=== PATIENT | female | born 1975 | race Caucasian/White ===

== ENCOUNTER 2016-10-27 19:45 | Emergency (ER) | payer MEDICARE ==
--- NOTE | 2016-10-27 20:33 | ER PHYSICIAN DOCUMENTATION ---
Physician Documentation [facility] Name:Leigha Smith Age:41 yrs Sex:Female :1975 Arrival Date:10/27/2016 Time:19:45 Bed3 Private MD:Physician, No ED Fabio Morgan Disposition: 10/27/16 20:27 Discharged to Home/Self Care. Impression: Bladder Infection (UTI). - Condition is Good. - Discharge Instructions: BLADDER INFECTION, Female (Adult). - Prescriptions for Cipro 500 mg Oral - take 1 tablet by ORAL route every 12 hours for 5 days; 10 tablet. - Medical Reconciliation form form. - Follow up: Private Physician; When: As needed; Reason: Continuance of care. - Problem is new. - Symptoms have improved. HPI: 10/27 21:22 This 41 yrs old Female presents to ER via Private Vehicle with complaints of jm Pain With Urination. 21:22 The patient presents with urinary symptoms, dysuria, frequency, urgency. Onset: The jm symptoms/episode began/occurred 1 week(s) ago. The patient has experienced similar episodes in the past, and the symptoms today are exactly the same, to when the patient was apparently diagnosed with UTI. Historical: - Allergies: No known drug Allergies; - Home Meds: 1. None - PMHx: None; - PSHx: ; - Tetanus: < 10 years. - Ebola Screening: : Patient negative for fever greater than or equal to 101.5 degrees Fahrenheit, and additional compatible Ebola Virus Disease symptoms. - Immunization history: Flu Vaccine None. - Social history: Smoking status: Patient states was never smoker of tobacco. ROS: 21:22 Positive for urinary symptoms. jm 21:22 Constitutional: Negative for fatigue, fever. 21:22 Abdomen/GI: Negative for abdominal pain. 21:22 Back: Negative for pain at rest, pain with movement. Exam: 21:22 Constitutional: The patient appears alert, awake, comfortable. jm 21:22 Abdomen/GI: Bowel sounds: normal, Palpation: abdomen is soft and non-tender. 21:22 : CVA tenderness, is absent, Bladder: is normal. Vital Signs: 19:52 BP 118 / 82; Pulse 82; Resp 16; Temp 98.8(O); Pulse Ox 94% on R/A; Weight 53.52 kg; rh Height 5 ft. 3 in. (160.02 cm); Pain 4/10; 19:52 Body Mass Index 20.90 (53.52 kg, 160.02 cm) rh MDM: 20:10 Patient medically screened. 21:25 Differential diagnosis: urinary tract infection. Data reviewed: vital signs, nurses jm notes, lab test result(s), urinalysis, bacteruria, hematuria, pyuria, and as a result, I will discharge patient. Counseling: I had a detailed discussion with the patient and/or guardian regarding: the historical points, exam findings, and any diagnostic results supporting the discharge/admit diagnosis, lab results, the need for outpatient follow up, with the patient's primary care provider. 10/27 20:30 Order name: UA W/O MICRO - SHAWANDA, CUL IF IND EDMS 10/27 19:53 Order name: Urine Dip; Complete Time: 19:53 rh Dispensed Medications: 20:24 CANCELLED (Physician Discretion): Azo-Standard 100 mg PO once 20:32 Drug: Cipro 500 mg; Route: PO; 20:32 Follow up: Response: No adverse reaction 20:32 Drug: Pyridium - Phenazopyridine 200mg 200 mg; Route: PO; 20:32 Follow up: Response: No adverse reaction Point of Care Testing: Urine Dip: 19:53 pH: 7.0; ; Specific [place]: 1.025; Ketones: Negative; Glucose: Negative; Protein: em1 Negative; Leukocytes: Positive; Nitrite: Negative ; Blood: Non Hemolyzed Trace; Bilirubin: Negative ; Urobilinogen: Normal Signatures: Fabio Brush MD MD jm Hofsess, Rachel
--- NOTE | 2016-10-27 20:33 | ER NURSING DOCUMENTATION ---
Nurse's Notes [facility] Name:Leigha Smith Age:41 yrs Sex:Female :1975 Arrival Date:10/27/2016 Time:19:45 Bed3 Private MD:Bella Rm Diagnosis:Bladder Infection (UTI) Presentation: 10/27 19:50 Presenting complaint: Patient states: Burning, frequency and four smelling urine for a rh week or more. Transition of care: Home. 19:50 Acuity: WILMER 4 19:50 Method Of Arrival: Private Vehicle Triage Assessment: 19:51 General: Appears in no apparent distress, Behavior is cooperative. General: Denies rh fever, chills. Pain: Denies pain. EENT: Oral mucosa is moist. Neuro: Level of Consciousness is awake, alert, obeys commands. : Urine is clear, Reports burning with urination pain urgency urinary frequency. Derm: Skin is intact, is healthy with good turgor, Skin is pink, warm & dry. Historical: - Allergies: No known drug Allergies; - Home Meds: 1. None - PMHx: None; - PSHx: ; - Tetanus: < 10 years. - Ebola Screening: : Patient negative for fever greater than or equal to 101.5 degrees Fahrenheit, and additional compatible Ebola Virus Disease symptoms. - Immunization history: Flu Vaccine None. - Social history: Smoking status: Patient states was never smoker of tobacco. Screenin:52 Infectious Disease Risk None. Abuse screen: Denies threats or abuse. Denies injuries rh from another. Nutritional screening: No deficits noted. Assessment: 19:52 See Triage Assessment done by same RN. rh Vital Signs: 19:52 BP 118 / 82; Pulse 82; Resp 16; Temp 98.8(O); Pulse Ox 94% on R/A; Weight 53.52 kg; rh Height 5 ft. 3 in. (160.02 cm); Pain 4/10; 19:52 Body Mass Index 20.90 (53.52 kg, 160.02 cm) rh ED Course: 19:46 Patient arrived in ED. em2 19:46 Physician, No is Private Physician. em2 19:50 Mikala Singleton is Primary Nurse. 19:51 Triage completed. 19:52 Valuables Remains with patient Patient has correct armband on for positive rh identification. Bed in low position. Call light in reach. 19:53 Urine collected. Clean catch specimen. em1 20:10 Fabio Brush MD is Attending Physician. ulises Administered Medications: 20:24 CANCELLED (Physician Discretion): Azo-Standard 100 mg PO once 20:32 Drug: Cipro 500 mg; Route: PO; 20:32 Follow up: Response: No adverse reaction 20:32 Drug: Pyridium - Phenazopyridine 200mg 200 mg; Route: PO; 20:32 Follow up: Response: No adverse reaction Point of Care Testing: Urine Dip: 19:53 pH: 7.0; ; Specific [place]: 1.025; Ketones: Negative; Glucose: Negative; Protein: em1 Negative; Leukocytes: Positive; Nitrite: Negative ; Blood: Non Hemolyzed Trace; Bilirubin: Negative ; Urobilinogen: Normal Outcome: 20:27 Discharge ordered by . 20:32 Discharged to home ambulatory. 20:32 Condition: stable 20:32 Discharge Assessment: Patient awake, alert and oriented x 3. No cognitive and/or functional deficits noted. Patient verbalized understanding of disposition instructions. 20:32 Discharge instructions given to patient, Instructed on discharge instructions, follow up and referral plans. Demonstrated understanding of instructions, medications, Prescriptions given X 1. 20:33 Patient left the ED. 10/28 11:07 Discharge F/U Call: Spoke with: patient. Overall Care on a scale of 1-10 with 10 ma being the best care, you rate our care as: Other comments: States everything was fantastic and is feeling better Signatures: Janee Rosenberg, RN Fabio Khan ma, MD MD jm MeinenGreet-tech, Olimpia-tech em1 Meinking-reg, Olimpia-reg em2 Mani, Mikala
[2016-10-27] MEDS ORDERED: PHENAZOPYRIDINE 100 MG TABLET PO ONE (20:35)
[2016-10-27] MEDS ORDERED: CIPROFLOXACIN HCL 500 MG TABLET PO ONE (20:35)
[2016-10-27 20:37] LABS: URINE MUCUS NONE SEEN (Up to 25%)
[2016-10-27 20:40] LABS: URINE APPEARANCE CLEAR; URINE COLOR YELLOW; URINE LEUKOCYTE ESTERASE 25 WBC/uL (1+) (NEGATIVE); URINE NITRITE NEGATIVE (NEGATIVE); URINE PROTEIN NEGATIVE (NEG - TRACE); URINE SPECIFIC GRAVITY 1.025 (0.001-1.035)
[2016-10-27 20:41] LABS: URINE BILIRUBIN NEGATIVE (NEGATIVE); URINE BLOOD TRACE (NEGATIVE); URINE GLUCOSE NORMAL (NEGATIVE); URINE KETONE NEGATIVE (NEGATIVE); URINE UROBILINOGEN 0.2mg/dL (Normal) (NEG-1mg/dL)
[2016-10-27 20:42] LABS: URINE SQUAMOUS EPITHELIAL CELL 0-5/hpf (<= 15/hpf)
[2016-10-27 20:43] LABS: URINE BACTERIA <10 ORGANISMS/hpf (<10/hpf); URINE COARSE GRANULAR CAST NONE SEEN (0-5/lpf); URINE FINE GRANULAR CAST NONE SEEN (0-5/lpf); URINE HYALINE CAST NONE SEEN (0-5/lpf); URINE RED BLOOD CELL CAST NONE SEEN (None Seen); URINE WAXY CAST NONE SEEN (0-2/lpf)
[2016-10-27 20:44] LABS: URINE SPERM NONE SEEN; URINE WHITE BLOOD CELL CAST NONE SEEN (None Seen)
== END 2016-10-27 20:33 | disposition home or self-care (01) ==
LOC: ER 19:45
DX: N39.0 Urinary tract infection, site not specified (principal); B96.20 Unspecified Escherichia coli [E. coli] as the cause of diseases classified elsewhere
CPT/HCPCS: 81001; 81003; 87077; 87086; 87186; 99283